=== PATIENT | female | born 1960 | race Caucasian/White ===

== ENCOUNTER 2020-03-17 17:10 | Inpatient (IN) | payer MEDICARE ==
[~2020-03-17] VITALS: Ht 165.1 cm; Wt 151.5 kg
[2020-03-17 18:18] LABS: HEMOGLOBIN 12.9 gm/dl (12.3-15.3); RED BLOOD COUNT 4.31 M/UL (4.00-5.10)
[2020-03-17 18:40] LABS: WHITE BLOOD COUNT 31.5 K/UL (4.5-11.0)
[2020-03-17] MEDS ORDERED: PROTONIX 40 MG40 M1 PO (23:59)
[2020-03-17] MEDS ORDERED: PHENERGAN 25 MG25 M1 PO (23:59)
[2020-03-18] MEDS ORDERED: BACTRIM DS TAB1 EACH PO
[2020-03-18] MEDS ORDERED: LOPRESSOR 25 MG25 MG PO (00:01)
[2020-03-18] MEDS ORDERED: REQUIP5 MG PO (00:01)
[2020-03-18] MEDS ORDERED: LEVOTHYROXINE125 MC1 PO (00:03)
[2020-03-18] MEDS ORDERED: GLUCOTROL 10 MG10 MG PO (00:03)
[2020-03-18] MEDS ORDERED: BUMETANIDE2 MG PO (00:03)
[2020-03-18] MEDS ORDERED: PRAVACHOL40 MG PO (00:04)
[2020-03-18] MEDS ORDERED: GLUCOPHAGE500 MG PO (00:04)
[2020-03-18] MEDS ORDERED: ZOLOFT100 MG PO (00:04)
[2020-03-18] MEDS ORDERED: NAPROSYN EC 50500 MG PO (00:05)
[2020-03-18] MEDS ORDERED: VITAMIN D21250 MCG PO (00:06)
[2020-03-18] MEDS ORDERED: NORVASC5 MG PO (00:06)
[2020-03-18 04:02] LABS: RED BLOOD COUNT 3.74 M/UL (4.00-5.10); WHITE BLOOD COUNT 52.4 K/UL (4.5-11.0)
[2020-03-18 06:56] LABS: HEMOGLOBIN 9.5 gm/dl (12.3-15.3)
[2020-03-18 07:18] LABS: RED BLOOD COUNT 3.35 M/UL (4.00-5.10); WHITE BLOOD COUNT 58.3 K/UL (4.5-11.0)
[2020-03-19 04:58] LABS: HEMOGLOBIN 7.8 gm/dl (12.3-15.3)
[2020-03-19 05:04] LABS: RED BLOOD COUNT 2.64 M/UL (4.00-5.10); WHITE BLOOD COUNT 35.7 K/UL (4.5-11.0)
[2020-03-20 05:23] LABS: HEMOGLOBIN 7.2 gm/dl (12.3-15.3); RED BLOOD COUNT 2.55 M/UL (4.00-5.10)
[2020-03-20 05:24] LABS: WHITE BLOOD COUNT 20.6 K/UL (4.5-11.0)
[2020-03-20 22:45] LABS: HEMOGLOBIN 6.9 gm/dl (12.3-15.3)
[2020-03-21 03:56] LABS: RED BLOOD COUNT 2.02 M/UL (4.00-5.10); WHITE BLOOD COUNT 29.9 K/UL (4.5-11.0)
[2020-03-21 03:57] LABS: HEMOGLOBIN 6.1 gm/dl (12.3-15.3)
[2020-03-21 10:11] LABS: RED BLOOD COUNT 2.02 M/UL (4.00-5.10); WHITE BLOOD COUNT 26.2 K/UL (4.5-11.0)
[2020-03-21 10:13] LABS: HEMOGLOBIN 6.1 gm/dl (12.3-15.3)
[2020-03-21 14:03] LABS: RED BLOOD COUNT 1.85 M/UL (4.00-5.10); WHITE BLOOD COUNT 27.4 K/UL (4.5-11.0)
[2020-03-21 14:09] LABS: HEMOGLOBIN 5.6 gm/dl (12.3-15.3)
[2020-03-21 18:09] LABS: WHITE BLOOD COUNT 28.5 K/UL (4.5-11.0)
[2020-03-21 18:19] LABS: RED BLOOD COUNT 2.18 M/UL (4.00-5.10)
[2020-03-21 18:20] LABS: HEMOGLOBIN 6.5 gm/dl (12.3-15.3)
== END 2020-03-21 21:00 | disposition short-term general hospital (02) | DRG 853 ==
LOC: ER1 17:10 → CCU 21:14 → CDU 21:14 → CCU 03-18 00:47
PROVIDERS: Family Medicine; Hospitalist; Internal Medicine Nephrology; Internal Medicine Pulmonary Disease; Surgery; ADMIT Internal Medicine
PROC: 0JB80ZZ Excision of Abdomen Subcutaneous Tissue and Fascia, Open Approach (ICD-10-PCS; 2020-03-17)
PROC: 0BH17EZ Insertion of Endotracheal Airway into Trachea, Via Natural or Artificial Opening (ICD-10-PCS; principal; 2020-03-18)
PROC: 5A1945Z Respiratory Ventilation, 24-96 Consecutive Hours (ICD-10-PCS; 2020-03-18)
PROC: 30233N1 Transfusion of Nonautologous Red Blood Cells into Peripheral Vein, Percutaneous Approach (ICD-10-PCS; 2020-03-18)
PROC: 30233N1 Transfusion of Nonautologous Red Blood Cells into Peripheral Vein, Percutaneous Approach (ICD-10-PCS; 2020-03-19)
PROC: 30233K1 Transfusion of Nonautologous Frozen Plasma into Peripheral Vein, Percutaneous Approach (ICD-10-PCS; 2020-03-20)
PROC: 30233N1 Transfusion of Nonautologous Red Blood Cells into Peripheral Vein, Percutaneous Approach (ICD-10-PCS; 2020-03-20)
PROC: 30233R1 Transfusion of Nonautologous Platelets into Peripheral Vein, Percutaneous Approach (ICD-10-PCS; 2020-03-20)
PROC: 0JB80ZZ Excision of Abdomen Subcutaneous Tissue and Fascia, Open Approach (ICD-10-PCS; 2020-03-20)
PROC: 30233R1 Transfusion of Nonautologous Platelets into Peripheral Vein, Percutaneous Approach (ICD-10-PCS; 2020-03-21)
PROC: 30233N1 Transfusion of Nonautologous Red Blood Cells into Peripheral Vein, Percutaneous Approach (ICD-10-PCS; 2020-03-21)
PROC: 30233K1 Transfusion of Nonautologous Frozen Plasma into Peripheral Vein, Percutaneous Approach (ICD-10-PCS; 2020-03-21)
DX: A41.51 Sepsis due to Escherichia coli [E. coli] (principal); R65.21 Severe sepsis with septic shock; M72.6 Necrotizing fasciitis; N17.0 Acute kidney failure with tubular necrosis; J80 Acute respiratory distress syndrome; A48.0 Gas gangrene; L02.211 Cutaneous abscess of abdominal wall; I13.0 Hypertensive heart and chronic kidney disease with heart failure and stage 1 through stage 4 chronic kidney disease, or unspecified chronic kidney disease; L03.311 Cellulitis of abdominal wall; E87.4 Mixed disorder of acid-base balance; E66.2 Morbid (severe) obesity with alveolar hypoventilation; E11.52 Type 2 diabetes mellitus with diabetic peripheral angiopathy with gangrene; E87.1 Hypo-osmolality and hyponatremia; E11.65 Type 2 diabetes mellitus with hyperglycemia; E87.6 Hypokalemia; E11.22 Type 2 diabetes mellitus with diabetic chronic kidney disease; N18.9 Chronic kidney disease, unspecified; I50.9 Heart failure, unspecified; Z20.822 Contact with and (suspected) exposure to COVID-19; K21.9 Gastro-esophageal reflux disease without esophagitis; F41.9 Anxiety disorder, unspecified; E78.5 Hyperlipidemia, unspecified; Z91.040 Latex allergy status; Z79.899 Other long term (current) drug therapy; D72.829 Elevated white blood cell count, unspecified; E03.9 Hypothyroidism, unspecified; I48.0 Paroxysmal atrial fibrillation; D69.6 Thrombocytopenia, unspecified
CPT/HCPCS: ECHO; 36415; 36430; 36600; 71045; 74018; 80048; 80053; 80202; 81001; 82310; 82533; 82803; 82962; 83605; 83735; 84100; 84133; 84300; 85007; 85014; 85018; 85025; 85027; 85384; 85610; 85730; 86140; 86850; 86900; 86901; 86920; 86927; 87040; 87070; 87077; 87081; 87186; 87205; 87635; 93005; 93306; 94002; 94003; 94640; 94664; 94760; 96365; 96368; 99285; C9113; J0610; J1160; J1205; J1650; J1720; J2001; J2185; J2250; J2370; J2543; J2704; J3010; J3370; J3480; J7030; J7040; J7042; J7050; J7070; J7120; P9016; P9017; P9035; P9037; P9045; P9047